=== PATIENT | female | born 1995 ===

== ENCOUNTER 2019-11-22 09:59 | Emergency (ER) | payer SELFPAY ==
[~2019-11-22] VITALS: Ht 157.4 cm; Wt 42.3 kg
[2019-11-22 10:20] LABS: CLARITY,URINE CLOUDY; COLOR,URINE YELLOW
[2019-11-22 10:21] LABS: BACTERIA,URINE FEW /HPF; BILIRUBIN,URINE NEGATIVE (NEGATIVE); GLUCOSE, URINE (UA) NEGATIVE (NEGATIVE); KETONES,URINE NEGATIVE (NEGATIVE); LEUKOCYTE ESTERASE ,URINE 3+ (NEGATIVE); NITRITE,URINE POSITIVE (NEGATIVE); PROTEIN,URINE 1+ (NEGATIVE); WBC,URINE 25-50 /HPF
--- NOTE | 2019-11-22 10:24 | ED Abdominal Pain ---
General Chief Complaint: Abdominal/GI Problems Stated Complaint: RT SIDE PAIN Source of Information: Patient, RN/MD Exam Limitations: No Limitations History of Present Illness Date Seen by Provider: Nov 22, 2019 Time Seen by Provider: 10:10 Initial Comments This patient is a 24-year-old female that presents to the emergency department complaining of lower abdominal pain that has now been up in the right side. Patient describes she is urinating frequently and having little small watery loose stools for a small amount every time she goes to the bathroom and passes gas. Patient is to describes abdominal pain as cramping. Patient denies any vaginal discharge. Patient denies any blood in her urine. Patient denies any vaginal discharge. Urine test at the bedside with nursing staff as negative. Timing/Duration: 12-24 Hours Severity/Quality: Moderate, Cramping Location: RUQ, RLQ, Suprapubic Radiation: No Radiation Activities at Onset: None Allergies and Home Medications Allergies Coded Allergies: No Known Drug Allergies (Unverified , 11/22/19) Home Medications No Active Prescriptions or Reported Meds Patient Home Medication List Home Medication List Reviewed: Yes Review of Systems Review of Systems Constitutional: No no symptoms reported, No see HPI, No chills, No diaphoresis, No dizziness, No fever, No malaise, No weakness, No weight gain, No weight loss, No other EENTM: No No Symptoms Reported, No See HPI, No Blurred Vision, No Double Vision, No Eye Pain, No Eye Tearing, No Ear Drainage, No Ear Pain, No Mouth Pain, No Mouth Swelling, No Nose Congestion, No Nose Pain, No Throat Pain, No Throat Swelling, No Other Respiratory: Denies No Symptoms Reported, Denies See HPI, Denies Cough, Denies Orthopnea, Denies Shortness of Air, Denies SOA With Exertion, Denies SOA at Rest, Denies Stridor, Denies Wheezing, Denies Other Cardiovascular: Denies No Symptoms Reported, Denies See HPI, Denies Chest Pain, Denies Edema, Denies Irregular Heart Rate, Denies Lightheadedness, Denies Palpitations, Denies Syncope, Denies Other Gastrointestinal: See HPI, Abdominal Pain, Diarrhea Genitourinary: Denies No Symptoms Reported; See HPI; Denies Burning, Denies Discharge, Denies Drainage; Frequency; Denies Flank Pain, Denies Hematuria, Denies Incontinence, Denies Pain, Denies Urgency, Denies Other Musculoskeletal: No no symptoms reported, No see HPI, No back pain, No gout, No joint pain, No joint swelling, No muscle pain, No muscle stiffness, No muscle cramps, No muscle twitching, No muscle weakness, No neck pain, No other Skin: No no symptoms reported, No see HPI, No change in color, No change in hair/nails, No dryness, No hx of skin cancer, No lesions, No lumps, No pruritus, No rash, No other Psychiatric/Neurological: Denies No Symptoms Reported, Denies See HPI, Denies Anxiety, Denies Depressed, Denies Emotional Problems, Denies Headache, Denies Numbness, Denies Paresthesia, Denies Pre-Existing Deficit, Denies Seizure, Denies Tingling, Denies Tremors, Denies Weakness, Denies Other All Other Systems Reviewed Negative Unless Noted: Yes Physical Exam Vital Signs Vital Signs - First Documented 11/22/19 10:02 Temp 36.4 Pulse 62 Resp 16 B/P (MAP) 101/47 (65) Pulse Ox 100 O2 Delivery Room Air Capillary Refill : Height/Weight/BMI Height: '" Weight: lbs. oz. kg; BMI Method: General Appearance: WD/WN, no apparent distress Respiratory: chest non-tender, lungs clear, normal breath sounds, no res piratory distress, no accessory muscle use Cardiovascular: normal peripheral pulses, regular rate, rhythm, no edema, no gallop, no JVD, no murmur Gastrointestinal: normal bowel sounds, non tender, soft, no organomegaly, no pulsatile mass Extremities: normal range of motion, non-tender, normal inspection, no pedal edema, no calf tenderness, normal capillary refill, pelvis stable Back: normal inspection, no CVA tenderness, no vertebral tenderness Skin: normal color, warm/dry Lymphatic: no adenopathy Progress/Results/Core Measures Results/Orders Lab Results Laboratory Tests Test 11/22/19 10:07 Range/Units Urine Color YELLOW Urine Clarity CLOUDY Urine pH 6.0 5-9 Urine Specific [place] 1.020 1.016-1.022 Urine Protein 1+ H NEGATIVE Urine Glucose (UA) NEGATIVE NEGATIVE Urine Ketones NEGATIVE NEGATIVE Urine Nitrite POSITIVE H NEGATIVE Urine Bilirubin NEGATIVE NEGATIVE Urine Urobilinogen 0.2 < = 1.0 MG/DL Urine Leukocyte Esterase 3+ H NEGATIVE Urine RBC (Auto) 1+ H NEGATIVE Urine RBC NONE /HPF Urine WBC 25-50 H /HPF Urine Squamous Epithelial Cells NONE /HPF Urine Crystals NONE /LPF Urine Bacteria FEW H /HPF Urine Casts NONE /LPF Urine Mucus SMALL H /LPF Urine Culture Indicated YES Urine Opiates Screen NEGATIVE NEGATIVE Urine Oxycodone Screen NEGATIVE NEGATIVE Urine Methadone Screen NEGATIVE NEGATIVE Urine Propoxyphene Screen NEGATIVE NEGATIVE Urine Barbiturates Screen NEGATIVE NEGATIVE Ur Tricyclic Antidepressants Screen NEGATIVE NEGATIVE Urine Phencyclidine Screen NEGATIVE NEGATIVE Urine Amphetamines Screen NEGATIVE NEGATIVE Urine Methamphetamines Screen NEGATIVE NEGATIVE Urine Benzodiazepines Screen NEGATIVE NEGATIVE Urine Cocaine Screen NEGATIVE NEGATIVE Urine Cannabinoids Screen POSITIVE H NEGATIVE My Orders Orders - FLACA AGUILAR MD Ua Culture If Indicated (11/22/19 10:07) Urine Bedside (11/22/19 10:07) Drug Screen Stat (Urine) (11/22/19 10:16) Abdomen Flat & Upright/Decub (11/22/19 10:20) Urine Culture (11/22/19 10:07) Vital Signs/I&O 11/22/19 10:02 Temp 36.4 Pulse 62 Resp 16 B/P (MAP) 101/47 (65) Pulse Ox 100 O2 Delivery Room Air Progress Progress Note : Time: 10:44 Progress Note Patient in the emergency department does not appear to be acutely sick or in acute pain. Patient ambulating without difficulty. Patient does not appear to have any discomfort. X-ray shows patient has significant constipation. Patient also UA shows patient has urinary tract infection. We'll give patient an IM injection of Rocephin in the emergency department patient be discharged home with Keflex. And Bentyl. Patient is to take medications as instructed. Encourage by mouth fluids. May use MiraLAX [id number] to help with constipation. Patient also instructed may use a brown by mixing 4 ounces of prune juice with 2 ounces of milk of magnesium +1 tablespoon of salted butter. Cervical warm. Follow-up with PCP in 2-3 days. Departure Impression Primary Impression: Constipation Additional Impression: Urinary tract infection Disposition: 01 HOME, SELF-CARE Condition: Stable Departure-Patient Inst. Decision time for Depature: 10:45 Patient Instructions: Constipation, Adult (DC), Urinary Tract Infection, Adult (DC) Add. Discharge Instructions: Patient is to take medications as instructed. Encourage by mouth fluids. May use MiraLAX [id number] to help with constipation. Patient also instructed may use a brown by mixing 4 ounces of prune juice with 2 ounces of milk of magnesium +1 tablespoon of salted butter. Cervical warm. Follow-up with PCP in 2-3 days. All discharge instructions reviewed with patient and/or family. Voiced understanding. Scripts Cephalexin (Keflex) 500 Mg Capsule 500 MG PO BID for 5 Days, #10 CAP 0 Refills Prov: FLACA AGUILAR MD 11/22/19 Dicyclomine HCl (Dicyclomine HCl) 20 Mg Tablet 20 MG PO BID, #20 TAB 0 Refills Prov: FLACA AGUILAR MD 11/22/19 FLACA AGUILAR MD Nov 22, 2019 10:24
[2019-11-22 10:37] LABS: AMPHETAMINE SCREEN, URINE NEGATIVE (NEGATIVE); BARBITURATE SCREEN URINE NEGATIVE (NEGATIVE); BENZODIAZEPINES SCREEN URINE NEGATIVE (NEGATIVE); CANNABINOID SCREEN, URINE POSITIVE (NEGATIVE); COCAINE SCREEN URINE NEGATIVE (NEGATIVE); METHADONE STAT NEGATIVE (NEGATIVE); METHAMPHETAMINE SCREEN URINE S NEGATIVE (NEGATIVE); OPIATE SCREEN URINE NEGATIVE (NEGATIVE); OXYCODONE STAT NEGATIVE (NEGATIVE); PROPOXYPHENE STAT NEGATIVE (NEGATIVE); TRICYCLIC ANTIDEPRESSANTS SCRE NEGATIVE (NEGATIVE)
[2019-11-22] MEDS ORDERED: cefTRIAXone FOR IV USE 500 MG in WATER (STERILE) FOR INJECTION 5 ML IV ONE (10:45)
[2019-11-22] MEDS ORDERED: CEPH-507 PO (10:47)
[2019-11-22] MEDS ORDERED: DICY20TA10 PO (10:47)
[2019-11-22] MEDS ORDERED: LIDOCAINE 1% INJ 20 ML 20 ML VIAL ONE (10:50)
--- NOTE | 2019-11-22 10:53 | Diagnostic Imaging Report ---
EXAM: ABDOMEN FLAT UPRIGHT/DECUB INDICATION: Right-sided abdominal pain. COMPARISON: None. FINDINGS: Nonspecific bowel gas pattern. No free intraperitoneal air. Moderate amount stool in the proximal colon. The distal half of the colon and rectum are decompressed, no acute osseous findings. No suspicious radiopaque foreign bodies. The lung bases are clear. IMPRESSION: No acute radiographic findings in the abdomen. Dictated by: Dictated on workstation # [id number]
[2019-11-22] MEDS ORDERED: cefTRIAXone 250 MG/ML vial (IM ONLY) IM ONE (11:00)
[2019-11-22] MEDS ORDERED: LIDOCAINE 1% INJ 20 ML 20 ML VIAL INJ ONE (11:00)
[2019-11-22 11:11] VITALS: BP 93/46
== END 2019-11-22 11:11 | disposition home or self-care (01) ==
LOC: ER FS 10:01
DX: K59.00 Constipation, unspecified (principal); N39.0 Urinary tract infection, site not specified
CPT/HCPCS: 74019; 80306; 81000; 84703; 87077; 87088; 87186

== ENCOUNTER 2019-12-22 23:06 | Emergency (ER) | payer BC ==
[~2019-12-22 23:06] MED LIST: CEPH-507 PO; DICY20TA10 PO
[2019-12-22] MEDS ORDERED: ACETAMINOPHEN 500 MG TAB (TYLENOL) ONE (23:34)
[2019-12-22] MEDS ORDERED: NS IV 1000 ML 1,000 ML ONE (23:34)
[2019-12-23] MEDS ORDERED: PHENAZOPYRIDINE 100 MG (PYRIDIUM) TABLET ONE (00:18)
[2019-12-23] MEDS ORDERED: CIPROFLOXACIN 500 MG (CIPRO) TABLET PO ONE (00:18)
[2019-12-24 10:59] LABS: HEMATOCRIT 43 % (35-52); HEMOGLOBIN 14.9 G/DL (11.5-16.0); LYMPHOCYTES % (AUTO) 10 % (12-44); MEAN CORPUSCULAR HEMOGLOBIN 31 PG (25-34); MEAN CORPUSCULAR HGB CONC 35 G/DL (32-36); MEAN CORPUSCULAR VOLUME 90 FL (80-99); MEAN PLATELET VOLUME 10.4 FL (7.4-10.4); NEUTROPHILS % (AUTO) 85 % (42-75); PLATELET COUNT 281 10^3/uL (130-400); RED CELL DISTRIBUTION WIDTH 12.1 % (10.0-14.5); WHITE BLOOD COUNT 13.6 10^3/uL (4.3-11.0)
[2019-12-24 11:00] LABS: BASOPHILS % (AUTO) 0 % (0-10); EOSINOPHILS % (AUTO) 0 % (0-10); LYMPHOCYTES # (AUTO) 1.3 X 10^3 (1.0-4.0); MONOCYTES # (AUTO) 0.7 X 10^3 (0.0-1.0); MONOCYTES % (AUTO) 5 % (0-12); NEUTROPHILS # (AUTO) 11.6 X 10^3 (1.8-7.8)
[2019-12-24 11:04] LABS: ALKALINE PHOSPHATASE 96 U/L (40-136); BILIRUBIN,TOTAL 0.6 MG/DL (0.1-1.0); BUN/CREATININE RATIO 11; CALCIUM 9.6 MG/DL (8.5-10.1); CARBON DIOXIDE 17 MMOL/L (21-32); CHLORIDE 102 MMOL/L (98-107); CREATININE SERUM 0.94 MG/DL (0.60-1.30); GFR ESTIMATED > 60; GLUCOSE 113 MG/DL (70-105); SODIUM 136 MMOL/L (135-145)
[2019-12-24 11:05] LABS: ALANINE AMINOTRANSFERASE 27 U/L (0-55); ALBUMIN 4.5 GM/DL (3.2-4.5); TOTAL PROTEIN 8.2 GM/DL (6.4-8.2)
[2019-12-24 11:06] LABS: COLOR,URINE YELLOW
[2019-12-24 11:07] LABS: BILIRUBIN,URINE NEGATIVE (NEGATIVE); CLARITY,URINE SLT CLOUDY; GLUCOSE, URINE (UA) NEGATIVE (NEGATIVE); KETONES,URINE NEGATIVE (NEGATIVE); LEUKOCYTE ESTERASE ,URINE 1+ (NEGATIVE); NITRITE,URINE POSITIVE (NEGATIVE); PROTEIN,URINE NEGATIVE (NEGATIVE)
[2019-12-24 11:08] LABS: BACTERIA,URINE LARGE /HPF; RBC,URINE 0-2 /HPF; WBC,URINE 50-100 /HPF
[2019-12-24 11:10] LABS: HCG,QUALITATIVE URINE NEGATIVE (NEGATIVE)
--- NOTE | 2019-12-24 15:50 | Diagnostic Imaging Report ---
EXAMINATION: Single view chest on 12/22/2019 at 11:40 PM. INDICATION: Cough and fever. COMPARISON: No prior studies are available for comparison. FINDINGS: The heart size is normal. There is a questionable minimal infiltrate in the left base. Otherwise, the lungs are clear. No effusion or pneumothorax is detected. IMPRESSION: Minimal left basilar infiltrate. Dictated by: Dictated on workstation # [id number]
== END 2019-12-23 00:40 | disposition home or self-care (01) ==
LOC: EDUNIT# 23:06 → ER FS 23:07
DX: N39.0 Urinary tract infection, site not specified (principal)
CPT/HCPCS: 36415; 71045; 80053; 81000; 84703; 85025; 87077; 87088; 87186; 99284; U0002; 87635